=== PATIENT | female | born 1980 ===

== ENCOUNTER → 2018-03-06 | Outpatient (CLI) | payer BC | END | disposition home or self-care (01) | LOC: LAB 07:30 | PROVIDERS: ATTEND Physician Assistant | DX: N39.0 Urinary tract infection, site not specified (principal) | CPT/HCPCS: 87086; 87088; 87186 ==

== ENCOUNTER 2022-10-25 00:07 | Emergency (ER) | payer BC ==
[~2022-10-25] VITALS: Ht 152.4 cm; Wt 64.7 kg
[2022-10-25] MEDS ORDERED: diphenhdrAMINE HCL 50 MG/1 ML VL IM ONE (01:00)
[2022-10-25] MEDS ORDERED: KETOROLAC TROMETH 30 MG/ML 1ML VIAL IM ONE (01:00)
[2022-10-25] MEDS ORDERED: METOCLOPRAMIDE HCL 5MG/ml INJ 2ml VIAL IM ONE (01:00)
[2022-10-25 02:58] VITALS: BP 112/74; PULSE 75; RESP 18; TEMP 98.3; O2SAT 97
== END 2022-10-25 02:59 | disposition home or self-care (01) ==
LOC: ER 00:07
DX: G43.901 Migraine, unspecified, not intractable, with status migrainosus (principal); Z79.899 Other long term (current) drug therapy
CPT/HCPCS: 70450; 96372; 99285; J1200; J1885; J2765